=== PATIENT | female | born 1990 | race Caucasian/White ===

== ENCOUNTER 2017-12-09 01:09 | Emergency (ER) | payer OTHER | END 2017-12-09 05:03 | disposition home or self-care (01) | LOC: FTE 01:09 | DX: K13.79 Other lesions of oral mucosa (principal) | CPT/HCPCS: 99283; Z7502 ==

== ENCOUNTER 2019-03-21 19:41 | Emergency (ER) | payer OTHER | END 2019-03-21 21:46 | disposition home or self-care (01) | LOC: FTE 21:46 | DX: K12.0 Recurrent oral aphthae (principal) | CPT/HCPCS: 99283; Z7502 ==